=== PATIENT | female | born 1985 | race Caucasian/White ===

== ENCOUNTER 2018-01-01 06:40 | Emergency (ER) | payer MEDICAID, SELFPAY, OTHER | END 2018-01-01 07:54 | disposition home or self-care (01) | LOC: M ED 06:40 | DX: S93.401A Sprain of unspecified ligament of right ankle, initial encounter (principal); X50.1XXA Overexertion from prolonged static or awkward postures, initial encounter; Y92.098 Other place in other non-institutional residence as the place of occurrence of the external cause | CPT/HCPCS: 73590 ==

== ENCOUNTER 2018-01-05 12:49 | Emergency (ER) | payer MEDICAID, SELFPAY ==
[2018-01-05] MEDS: METOCLOPRAMIDE 10 MG TAB PO ×2 (15:31)
[2018-01-05 15:52] LABS: KETONE, URINE AUTO RFX 2+ mg/dL (NEGATIVE); LEUKOCYTE ESTERASE UR AUTO RFX 3+ (NEGATIVE); MUCUS, URINE RFX SMALL (NEGATIVE); NITRITE, URINE AUTO RFX NEGATIVE (NEGATIVE); RBC, URINE AUTO RFX 16 /HPF (0-3); SPECIFIC GRAVITY UR AUTO RFX 1.025 (1.002-1.035); SQUAM EPITHELIAL CELL UR AURFX 32 /HPF (0-6); WBC, URINE AUTO RFX 64 /HPF (0-3)
[2018-01-05 16:07] LABS: CONTROL LINE UCG INT CTR LINE PRESENT; URINE PREG TEST NEGATIVE (NEGATIVE)
== END 2018-01-05 17:07 | disposition home or self-care (01) ==
LOC: M ED 12:49
DX: N39.0 Urinary tract infection, site not specified (principal); R05 Cough; I10 Essential (primary) hypertension; F17.210 Nicotine dependence, cigarettes, uncomplicated
CPT/HCPCS: 71046

== ENCOUNTER 2018-01-07 23:23 | Emergency (ER) | payer MEDICAID, SELFPAY ==
[2018-01-08 00:06] LABS: CALCIUM OXALATE CRYSTALS RFX SMALL; KETONE, URINE AUTO RFX TRACE mg/dL (NEGATIVE); LEUKOCYTE ESTERASE UR AUTO RFX TRACE (NEGATIVE); MUCUS, URINE RFX LARGE (NEGATIVE); NITRITE, URINE AUTO RFX NEGATIVE (NEGATIVE); RBC, URINE AUTO RFX 3 /HPF (0-3); SPECIFIC GRAVITY UR AUTO RFX 1.034 (1.002-1.035); SQUAM EPITHELIAL CELL UR AURFX 10 /HPF (0-6); WBC, URINE AUTO RFX 24 /HPF (0-3)
[2018-01-08] MEDS: NS 1,000 ML IV ×2 (00:25)
[2018-01-08] MEDS: KETOROLAC 30 MG/ML VIAL (J1885) IV ×2 (00:26)
[2018-01-08] MEDS: ONDANSETRON 4MG/2ML VIAL (J2405) IV ×2 (00:26)
[2018-01-08 00:34] LABS: BASO # 0.1 10^3/uL (0.0-0.2); BASO % 0.7 % (0.0-1.0); EOS # 0.6 10^3/uL (0.0-0.50); EOS % 4.1 % (0.0-3.0); HEMATOCRIT 46.9 % (36.0-47.0); HEMOGLOBIN 15.9 g/dl (12.0-15.5); IMMATURE GRANULOCYTE % 0.8 % (0-3.0); LYMPH # 3.1 10^3/uL (1.5-4.5); LYMPH % 22.9 % (24.0-44.0); MEAN CORPUSCULAR HEMOGLOBIN 29.3 pg (27.0-33.0); MEAN CORPUSCULAR HGB CONC 33.9 g/dl (32.0-36.5); MEAN CORPUSCULAR VOLUME 86.4 fl (80.0-96.0); MONO # 1.1 10^3/uL (0.0-0.8); MONO % 7.7 % (0.0-5.0); NEUTROPHILS # 8.7 10^3/uL (1.8-7.7); NEUTROPHILS % 63.8 % (36.0-66.0); PLATELET COUNT, AUTOMATED 293 10^3/uL (150-450); RED BLOOD COUNT 5.43 10^6/uL (4.00-5.40); RED CELL DISTRIBUTION WIDTH 13.9 % (11.5-14.5); WHITE BLOOD COUNT 13.7 10^3/uL (4.0-10.0)
[2018-01-08 00:51] LABS: CONTROL LINE HCG INT CTR LINE PRESENT; HCG, SERUM QUALITATIVE NEGATIVE (NEGATIVE)
[2018-01-08 00:56] LABS: ALBUMIN 3.6 GM/DL (3.2-5.2); ALBUMIN/GLOBULIN RATIO 0.92 (1.00-1.93); ALKALINE PHOSPHATASE 79 U/L (45-117); ALT/SGPT 42 U/L (12-78); ANION GAP 10 MEQ/L (8-16); AST/SGOT 20 U/L (7-37); BILIRUBIN,DIRECT 0.2 MG/DL (0.0-0.2); BILIRUBIN,TOTAL 0.6 MG/DL (0.2-1.0); BLOOD UREA NITROGEN 15 MG/DL (7-18); CALCIUM LEVEL 8.5 MG/DL (8.5-10.1); CARBON DIOXIDE LEVEL 23 MEQ/L (21-32); CHLORIDE LEVEL 105 MEQ/L (98-107); CREATININE FOR GFR 0.85 MG/DL (0.55-1.30); GLOMERULAR FILTRATION RATE > 60.0 (>60); GLUCOSE, FASTING 96 MG/DL (70-100); LIPASE 189 U/L (73-393); POTASSIUM SERUM 3.7 MEQ/L (3.5-5.1); SODIUM LEVEL 138 MEQ/L (136-145); TOTAL PROTEIN 7.5 GM/DL (6.4-8.2)
[2018-01-08 00:58] LABS: LACTIC ACID SEPSIS PROTOCOL 0.7 MMOL/L (0.4-2.0)
[2018-01-08] MEDS: CIPROFLOXACIN 400 MG in APPROPRIATE DILUENT 1 EA IV (01:45)
== END 2018-01-08 03:00 | disposition home or self-care (01) ==
LOC: M ED 23:23
DX: N30.00 Acute cystitis without hematuria (principal); R11.2 Nausea with vomiting, unspecified; N39.0 Urinary tract infection, site not specified; Z72.0 Tobacco use
CPT/HCPCS: J2405

== ENCOUNTER 2024-03-22 12:00 | Emergency (ER) | payer MEDICAID, SELFPAY ==
[~2024-03-22] VITALS: Ht 157.5 cm; Wt 66.6 kg
[~2024-03-22 12:00] MED LIST: CIPR-249 PO; REGL10TA6 PO; ZOFR4TAB14 PO
[2024-03-22] MEDS: KETOROLAC 30 MG/ML 1ML VIAL IV ONE (12:20)
[2024-03-22] MEDS: ONDANSETRON 4MG 2ML VIAL IV ONE (12:20)
[2024-03-22] MEDS: NS 1,000 ML IV ONE (12:20)
[2024-03-22 12:45] LABS: BASO % 0.2 % (0.0-1.0); EOS % 0.3 % (0.0-3.0); HEMATOCRIT 43.1 % (36.0-47.0); HEMOGLOBIN 14.8 g/dl (12.0-15.5); LYMPH # 1.3 10^3/uL (1.5-5.0); LYMPH % 11.7 % (24.0-44.0); MEAN CORPUSCULAR HGB CONC 34.3 g/dl (32.0-36.5); MEAN CORPUSCULAR VOLUME 87.4 fl (80.0-96.0); MONO # 1.1 10^3/uL (0.0-0.8); MONO % 9.8 % (2.0-8.0); NEUTROPHILS # 8.4 10^3/uL (1.5-8.5); NEUTROPHILS % 77.6 % (36.0-66.0); PLATELET COUNT, AUTOMATED 204 10^3/uL (150-450); RED BLOOD COUNT 4.93 10^6/uL (4.00-5.40); WHITE BLOOD COUNT 10.8 10^3/uL (4.0-10.0)
[2024-03-22 13:11] LABS: LIPASE 45 U/L (12-53)
[2024-03-22 13:13] LABS: ALBUMIN 3.4 G/DL (3.2-5.2); ALKALINE PHOSPHATASE 50 U/L (35-104); ALT/SGPT 19 U/L (7.0-40); AST/SGOT 16 U/L (<34); BILIRUBIN,TOTAL 0.3 MG/DL (0.3-1.2); BLOOD UREA NITROGEN 11 MG/DL (9-23); CALCIUM LEVEL 9.5 MG/DL (8.5-10.1); CARBON DIOXIDE LEVEL 28 MMOL/L (20-31); CHLORIDE LEVEL 108 MMOL/L (98-107); CREATININE FOR GFR 0.65 MG/DL (0.55-1.30); GLOMERULAR FILTRATION RATE > 60.0 (>60); GLUCOSE, FASTING 111 MG/DL (60-100); POTASSIUM SERUM 3.4 MMOL/L (3.5-5.1); SODIUM LEVEL 143 MMOL/L (136-145); TOTAL PROTEIN 6.2 G/DL (5.7-8.2)
[2024-03-22] MEDS: ACETAMINOPHEN 500 MG TAB PO ONE (14:00)
[2024-03-22] MEDS: METOCLOPRAMIDE INJ 10MG/2ML VIAL IV ONE (14:00)
[2024-03-22] MEDS ORDERED: ONDA-282 PO (14:01)
[2024-03-22] MEDS ORDERED: REGL10TA6 PO (14:01)
[2024-03-22] MEDS ORDERED: NAPR-837 PO (14:01)
[2024-03-22 14:25] VITALS: BP 137/90; TEMP 98; O2SAT 99
== END 2024-03-22 14:29 | disposition home or self-care (01) ==
LOC: M ED 12:00
DX: N83.201 Unspecified ovarian cyst, right side (principal); N83.202 Unspecified ovarian cyst, left side; R11.2 Nausea with vomiting, unspecified; Z79.83 Long term (current) use of bisphosphonates; Z79.1 Long term (current) use of non-steroidal anti-inflammatories (NSAID); Z79.899 Other long term (current) drug therapy
CPT/HCPCS: 74176; 80053; 81001; 83605; 83690; 85025; 96374; 96375; 99284; J1885; J2405; J2765

== ENCOUNTER 2024-03-24 09:25 | Observation (INO) | payer SELFPAY ==
[~2024-03-24] VITALS: Ht 157.5 cm; Wt 65.6 kg
[~2024-03-24 09:25] MED LIST changes: +NAPR-837 PO; +ONDA-282 PO
[2024-03-24 10:34] LABS: BASO % 0.2 % (0.0-1.0); EOS # 0.1 10^3/uL (0.0-0.5); EOS % 0.3 % (0.0-3.0); HEMATOCRIT 45.2 % (36.0-47.0); HEMOGLOBIN 14.9 g/dl (12.0-15.5); LYMPH # 1.2 10^3/uL (1.5-5.0); MEAN CORPUSCULAR HEMOGLOBIN 29.6 pg (27.0-33.0); MEAN CORPUSCULAR VOLUME 89.7 fl (80.0-96.0); MONO # 1.2 10^3/uL (0.0-0.8); MONO % 8.5 % (2.0-8.0); NEUTROPHILS % 82.5 % (36.0-66.0); PLATELET COUNT, AUTOMATED 207 10^3/uL (150-450); RED BLOOD COUNT 5.04 10^6/uL (4.00-5.40); WHITE BLOOD COUNT 14.5 10^3/uL (4.0-10.0)
[2024-03-24 11:03] LABS: LIPASE 29 U/L (12-53)
[2024-03-24 11:10] LABS: ALBUMIN 3.3 G/DL (3.2-5.2); ALKALINE PHOSPHATASE 75 U/L (35-104); ALT/SGPT 31 U/L (7.0-40); AST/SGOT 21 U/L (<34); BILIRUBIN,DIRECT 0.2 MG/DL (<0.4); BILIRUBIN,TOTAL 0.4 MG/DL (0.3-1.2); BLOOD UREA NITROGEN 5 MG/DL (9-23); CALCIUM LEVEL 9.5 MG/DL (8.5-10.1); CARBON DIOXIDE LEVEL 26 MMOL/L (20-31); CHLORIDE LEVEL 107 MMOL/L (98-107); CREATININE FOR GFR 0.59 MG/DL (0.55-1.30); GLOMERULAR FILTRATION RATE > 60.0 (>60); GLUCOSE, FASTING 98 MG/DL (60-100); POTASSIUM SERUM 3.6 MMOL/L (3.5-5.1); SODIUM LEVEL 143 MMOL/L (136-145); TOTAL PROTEIN 6.5 G/DL (5.7-8.2)
[2024-03-24] MEDS: ACETAMINOPHEN *IV* 1,000 MG in IV 1 EA IV ONE (11:11)
[2024-03-24] MEDS: dexAMETHasone 20MG/5ML VIAL IV ONE (11:11)
[2024-03-24] MEDS ORDERED: AMPICILLIN SOD/SULBACTAM SOD 3 GM in DEXTROSE 5% (D5W) ADV/MINI-BAG 50 ML IV ONE (11:20)
[2024-03-24 11:21] LABS: HCG, SERUM QUALITATIVE NEGATIVE (NEGATIVE)
[2024-03-24] MEDS ORDERED: ISOVUE-370 76% 100ML VIAL As Ordered ONE (11:26)
[2024-03-24] MEDS: AMPICILLIN SOD/SULBACTAM SOD 3 GM in SODIUM CHLORIDE 0.9% 100ML ADD 100 ML IV ONE (11:54)
[2024-03-24] MEDS: NS (Normal Saline) 0.9% 1,000 ML IV ONE (13:02)
[2024-03-24] MEDS: NS (Normal Saline) 0.9% 1,000 ML IV SCH (15:20)
[2024-03-24] MEDS ORDERED: ONDA-282 PO (15:56)
[2024-03-24] MEDS ORDERED: METO10TA2 PO (15:56)
[2024-03-24] MEDS ORDERED: HOME MED LIST COMPLETE! XX SCH (16:00)
[2024-03-24 17:46] VITALS: BP 139/94; TEMP 97.7; O2SAT 96
[2024-03-24] MEDS ORDERED: AMPICILLIN SOD/SULBACTAM SOD 3 GM in DEXTROSE 5% (D5W) ADV/MINI-BAG 50 ML IV SCH (18:00)
[2024-03-24] MEDS: AMPICILLIN SOD/SULBACTAM SOD 3 GM in SODIUM CHLORIDE 0.9% 100ML ADD 100 ML IV SCH (18:19)
[2024-03-24] MEDS: ACETAMINOPHEN *IV* 1,000 MG in IV 1 EA IV SCH (20:28)
[2024-03-24 21:23] VITALS: BP 136/96; TEMP 98.3; O2SAT 96
[2024-03-25] MEDS ORDERED: ENOXAPARIN 40MG/0.4ML SYRINGE (J1650 PER 10MG) SC SCH (09:00)
== END 2024-03-25 01:20 | disposition left against medical advice (07) ==
LOC: M ED 09:25 → M ED INP 09:26 → M MS5PR 17:15
PROVIDERS: ADMIT Internal Medicine; ATTEND Internal Medicine
DX: J36 Peritonsillar abscess (principal); B95.5 Unspecified streptococcus as the cause of diseases classified elsewhere; M54.2 Cervicalgia; R10.9 Unspecified abdominal pain; R13.10 Dysphagia, unspecified; R00.0 Tachycardia, unspecified; I10 Essential (primary) hypertension; Z87.891 Personal history of nicotine dependence; Z82.49 Family history of ischemic heart disease and other diseases of the circulatory system; Z88.5 Allergy status to narcotic agent
CPT/HCPCS: 70491; 80048; 80076; 81001; 83690; 84703; 85025; 87880; 96361; 96365; 96367; 96376; 99284; J0131; J0295; J1100; Q9967